=== PATIENT | male | born 1995 ===

== ENCOUNTER 2017-07-16 12:01 | Emergency (ER) | payer OTHER, BC ==
[2017-07-16 12:22] VITALS: BP 113/67; PULSE 69; RESP 18; TEMP 98; O2SAT 99
[2017-07-16] MEDS ORDERED: Fluorescein 1 mg Ophthalmic Strip ONE (12:31)
--- NOTE | 2017-07-16 12:32 | ED PDOC ---
HPI: Eye Injury/Pain Time Seen by Provider: 07/16/17 12:23 Chief Complaint (Nursing): Eye Problem Chief Complaint (Provider): Eye Problem History Per: Patient History/Exam Limitations: no limitations Onset/Duration Of Symptoms: Mins (x10) Current Symptoms Are (Timing): Still Present Additional Complaint(s): David Valladares is a 22 year old male who presents to the ED due right eye pain and swelling x 10 minutes prior to arrival. Patient states he is unsure whether a foreign body entered his eye or if he was exposed to a chemical at work, resulting in his injury. He is able to see but has slight blurry vision. He does not wear glasses or contact lenses. PMD: none Past Medical History Reviewed: Historical Data, Nursing Documentation, Vital Signs Vital Signs: Last Vital Signs Temp 98 F 07/16/17 12:18 Pulse 69 07/16/17 12:18 Resp 18 07/16/17 12:18 BP 113/67 07/16/17 12:18 Pulse Ox 99 07/16/17 12:18 - Medical History PMH: No Chronic Diseases - Surgical History Surgical History: No Surg Hx - Family History Family History: States: No Known Family Hx - Living Arrangements Living Arrangements: With Family - Social History Current smoker - smoking cessation education provided: Yes Alcohol: None Drugs: Denies - Immunization History Hx Tetanus Toxoid Vaccination: Yes - Home Medications Home Medications: Ambulatory Orders Medication Instructions Recorded Tobramycin [Tobrex] 5 ml TOP QID #1 bottle 07/16/17 - Allergies Allergies/Adverse Reactions: Allergies Allergy/AdvReac Type Severity Reaction Status Date / Time No Known Allergies Allergy Verified 07/16/17 12:17 Review of Systems ROS Statement: Except As Marked, All Systems Reviewed And Found Negative Eyes: Positive for: Pain (right eye, FB sensation) Neurological: Negative for: Headache, Dizziness Physical Exam - Reviewed Nursing Documentation Reviewed: Yes Vital Signs Reviewed: Yes - Physical Exam Appears: Positive for: Well, Non-toxic, No Acute Distress Head Exam: Positive for: ATRAUMATIC, NORMAL INSPECTION, NORMOCEPHALIC Skin: Positive for: Normal Color, Warm, DRY Eye Exam: Positive for: Conjunctival injection (Mild, right eye), Other (Right eye corneal abrasion at 9 o'clock, no obvious foreign body) Neurologic/Psych: Positive for: Alert, Oriented - ECG O2 Sat by Pulse Oximetry: 99 (RA) Pulse Ox Interpretation: Normal Medical Decision Making Medical Decision Making: Time: 12:35 Initial Impression: 22 year old male with right eye corneal abrasion Plan: --Procedure note: Applied 2 drops Tetracaine to right eye and stained with Fluorescein strip. Examined eye under UV light and identified corneal abrasion at 9 oclock. No foreign body to cornea or upon lid eversion. Procedure tolerated well by patient with no complications. Visual Acuity: Left 20/20 Right 20/20 Both 20/20 Rx tobramycin drops given, advised NSIAD's for pain prn and eye doctor follow up. Scribe Attestation: Documented by Kendall Golden, acting as a scribe for Rica Mancia PA-C Provider Scribe Attestation: All medical record entries made by the Scribe were at my direction and personally dictated by me. I have reviewed the chart and agree that the record accurately reflects my personal performance of the history, physical exam, medical decision making, and the department course for this patient. I have also personally directed, reviewed, and agree with the discharge instructions and disposition. Disposition - Clinical Impression Clinical Impression: Corneal abrasion - Patient ED Disposition Is Patient to be Admitted: No Counseled Patient/Family Regarding: Diagnosis, Need For Followup, Rx Given - Disposition Referrals: Phillip Orozco MD [Staff Provider] - Disposition: Routine/Home Disposition Time: 12:54 Condition: STABLE Additional Instructions: Apply rx drops as directed. Use saline wash to flush eye out 3-4 times per day. Over the counter tylenol or advil as needed for pain. Follow up with eye doctor in 2-3 days. Prescriptions: Tobramycin [Tobrex] 5 ml TOP QID #1 bottle Instructions: Corneal Abrasion (ED) Forms: [employer] (Arabic)
[2017-07-16] MEDS ORDERED: Ophthalmic Irrigation, Soln OU STA (12:54)
== END 2017-07-16 13:40 | disposition home or self-care (01) ==
LOC: H.ER 12:01
DX: S05.01XA Injury of conjunctiva and corneal abrasion without foreign body, right eye, initial encounter (principal); Y99.0 Civilian activity done for income or pay